=== PATIENT | male | born 1955 | race Caucasian/White ===

== ENCOUNTER → 2017-06-18 08:33 | Outpatient (CLI) | payer OTHER, SELFPAY ==
--- NOTE | 2017-06-18 08:42 | US_ITS ---
STUDY: RENAL ULTRASOUND - COMPLETE REASON FOR EXAM: Male, 61 years old. Renal cysts. TECHNIQUE: Ultrasound evaluation of the kidneys was performed with real-time and static todd-scale imaging. COMPARISON: CT of the abdomen and pelvis, June 16, 2016. MRI of the abdomen and pelvis, a 2016. Renal ultrasound, January 15, 2016. FINDINGS: RIGHT KIDNEY: Normal location of the right kidney, which is normal in size. The right kidney measures 12.4 cm. There is a normal cortex of the right kidney. The renal cortex measures 1.7 cm. There are 4 cysts. The largest off the lower pole measures 7.4 x 6.2 x 7.8 cm in size. This appears to contain small amount of internal debris. Moderate degree is decreased from the prior ultrasound. The remainder of the cysts appear simple in appearance and stable in size. There are no right renal calculi. There is no right hydronephrosis. DISTAL RIGHT URETER: There is non-visualization of the distal right ureter. There is no demonstrated right ureterovesical junction calculus. There is a visualized right ureteral jet. LEFT KIDNEY: Normal location of the left kidney, which is normal in size. The left kidney measures 11.5 cm. There is a normal cortex of the left kidney. The renal cortex measures 1.6 cm. There is a 1.8 x 1.1 x 1.0 cm cyst in the mid pole. There is a second midpole cyst measuring 1.4 x 1.4 x 1.7 cm. Both appear simple. There are no left renal calculi. There is no left hydronephrosis. DISTAL LEFT URETER: There is non-visualization of the distal left ureter. There is no demonstrated left ureterovesical junction calculus. There is a visualized left ureteral jet. BLADDER: The distended urinary bladder has a volume of 88 ml. There is a normal wall thickness of the distended urinary bladder. There is no demonstrated mass within the urinary bladder. There are no demonstrated bladder calculi. US/Kidney and Bladder IMPRESSION: 1. Multiple bilateral renal cysts. The largest cyst in the inferior right kidney contains internal debris. The degree of debris appears decreased from the prior ultrasound January 17, 2016. 2. Normal urinary bladder. Electronically Signed: Ramin Dejesus DO at 16:56 EDT Tel [phone], Service support ,
== END ==
PROVIDERS: Family Provider Family Medicine; PCP Family Medicine; Visit Provider Urology
DX: R97.20 Elevated prostate specific antigen [PSA] (principal)
CPT/HCPCS: 76770

== ENCOUNTER → 2017-07-31 10:38 | Outpatient (CLI) | payer OTHER, SELFPAY ==
[2017-07-31 11:14] LABS: Hematocrit 44.2 % (40-54); Hemoglobin 14.9 g/dl (13.0-16.5); Mean Corp Hgb Conc 33.7 g/gl (32-36); Mean Corpuscular Hgb 31.8 pg (27.0-32.0); Mean Corpuscular Volume 94.2 fL (80-94); Mean Platelet Vol. 10.4 fl (6.2-12.0); Platelet Count 208 K/mm3 (150-450); RBC Distribution Width CV 14.2 % (11.6-14.6); RBC Distribution Width SD 48.4 fl (35.1-43.9); Red Blood Count 4.69 M/mm3 (4.6-6.2); White Blood Count 8.1 K/mm3 (4.4-11.0)
[2017-07-31 11:15] LABS: Scan Indicated on CBC? Y/N NO
[2017-07-31 12:24] LABS: ALB/GLOB Ratio 0.9 RATIO (0.9-2.4); AST(SGOT) 17 U/L (15-37); Alanine Aminotransfer ALT/SGPT 32 U/L (16-61); Albumin, Serum 3.5 g/dL (3.2-5.0); Alkaline Phosphatase 79 U/L (45-117); Anion Gap 5 (5-15); BUN 25 mg/dL (7-18); BUN/Creat Ratio 22.9 RATIO (10-20); Calcium,Total 8.4 mg/dL (8.5-10.1); Chloride 105 mmol/L (98-107); Cholesterol 175 mg/dL (200); Creatinine, Serum 1.09 mg/dL (0.70-1.30); EST Glomerular Filtration Rate 73 mL/min (>60); Est Glom Filt Rate - Afr Amer 88 mL/min (>60); Glucose 132 mg/dL (74-106); High Density Lipoprotein 43 mg/dL; Potassium 4.4 mmol/L (3.5-5.1); Protein, Total 7.5 g/dL (6.4-8.2); Sodium Level 137 mmol/L (136-145); Triglycerides 84 mg/dL; Very Low Density Lipoprotein 17 mg/dL (5-40)
[2017-07-31 16:45] LABS: Thyroid Stim Hormone (TSH) 1.53 uIU/mL (0.358-3.74)
== END ==
PROVIDERS: Family Provider Family Medicine; PCP Family Medicine
DX: E78.5 Hyperlipidemia, unspecified (principal); I10 Essential (primary) hypertension; I48.91 Unspecified atrial fibrillation; R53.83 Other fatigue
CPT/HCPCS: 36415; 80053; 80061; 84443; 85027

== ENCOUNTER 2017-09-14 20:38 | Inpatient (IN) | payer OTHER, SELFPAY ==
[2017-09-14] VITALS (8 sets, daily range): BP systolic 98–123; BP diastolic 57–69; PULSE 32–54; RESP 16–20; TEMP 36.5–36.8; O2SAT 96–98; BMI 33.4; BMI 33.3
--- NOTE | 2017-09-14 20:40 | ED.RN ---
CALLED FOR EKG PER RN REQUEST, PULLED OLD EKG'S FOR
--- NOTE | 2017-09-14 20:57 | EKG12_ITS ---
Test Reason : LOW HR Blood Pressure : / mmHG Vent. Rate : 040 BPM Atrial Rate : 042 BPM P-R Int : 000 ms QRS Dur : 090 ms QT Int : 448 ms P-R-T Axes : 000 069 068 degrees QTc Int : 365 ms Atrial fibrillation with slow ventricular response Confirmed by VICKY AUGUST, PRIYANKA ([id number]), copy editor CLARE DUQUE ([id number]) on 09/16/2017 10:17:13 AM Referred By: PHILIPP Confirmed By:PRIYANKA PERRY MD
[2017-09-14] MEDS: Atropine Sulfate 1 MG/10 ML Syringe IV (21:02)
[2017-09-14] MEDS: Aspirin 81 MG TAB.CHEW 324 MG PO (21:04)
[2017-09-14] MEDS: Calcium Chloride 1 GM/10 ML Syringe IV (21:04)
--- NOTE | 2017-09-14 21:10 | RAD_ITS ---
STUDY: X-RAY CHEST REASON FOR EXAM: Male, 61 years old. Bradycardia TECHNIQUE: Single AP portable view of the chest. COMPARISON: 03/19/2015. FINDINGS: The lungs are clear and expanded. There is no demonstrated pleural abnormality. Normal size heart. Normal mediastinum and shannan. Normal visualized pulmonary arteries. Normal visualized aortic arch and descending thoracic aorta. Normal visualized thoracic spine. Normal visualized ribs, clavicles, and shoulders. There is no demonstrated abnormality of the visualized soft tissue structures of the upper abdomen. RAD/Chest 1 View (Portable) IMPRESSION: Normal x-ray examination of the chest. Electronically Signed: Juan Cornejo MD at 21:26 EDT , Service support ,
[2017-09-14 21:14] LABS: Absolute Lymphocyte Count 3.09 X10^3/ul (0.83-4.51); Basophil# 0.05 X10^3/uL; Basophil% 0.4 % (0-1); Differential Indicated SCAN CRITERIA MET; Eosinophil# 0.13 X10^3/uL; Hematocrit 45.9 % (40-54); Hemoglobin 15.5 g/dl (13.0-16.5); Lymphocyte # 3.09 X10^3/ul (4.0); Lymphocyte % 23.6 % (19-41); Mean Corp Hgb Conc 33.8 g/gl (32-36); Mean Corpuscular Hgb 32.2 pg (27.0-32.0); Mean Corpuscular Volume 95.2 fL (80-94); Mean Platelet Vol. 10.6 fl (6.2-12.0); Monocyte# 1.82 X10^3/uL; Monocyte% 13.9 % (0-10); Neutrophil # 7.95 X10^3/uL (2.7-7.7); Neutrophil % 60.8 % (47-70); POSITIVE COUNT NO; POSITIVE DIFFERENTIAL YES; POSITIVE MORPHOLOGY NO; Platelet Count 245 K/mm3 (150-450); RBC Distribution Width CV 13.5 % (11.6-14.6); Red Blood Count 4.82 M/mm3 (4.6-6.2); White Blood Count 13.1 K/mm3 (4.4-11.0)
[2017-09-14] MEDS: Ondansetron 4 MG/2 ML Vial IV (21:23)
[2017-09-14 21:26] LABS: Anion Gap 8 (5-15); BUN 40 mg/dL (7-18); BUN/Creat Ratio 13.1 RATIO (10-20); Calcium,Total 9.1 mg/dL (8.5-10.1); Chloride 102 mmol/L (98-107); Creatinine, Serum 3.05 mg/dL (0.70-1.30); EST Glomerular Filtration Rate 22 mL/min (>60); Est Glom Filt Rate - Afr Amer 27 mL/min (>60); Estimated Creatinine Clearance 22.66 ml/min; Glucose 174 mg/dL (74-106); Potassium 4.1 mmol/L (3.5-5.1); Sodium Level 137 mmol/L (136-145)
[2017-09-14 21:46] LABS: Differential Comment SCANNED
--- NOTE | 2017-09-14 22:28 | ED.VISSUMM ---
- ER Visit Summary Date of Service: 09/14/17 Chief Complaint: Weakness History of Present Illness: The patient is a 61 M who presents with weakness, he was bradycardic per EMS. He has a history of atrial fibrillation recently was started on Cardizem on top of his metoprolol. About 2 weeks ago he was started on the diuretic. No fever chills no chest pain or shortness of breath. Physical Examination: Patient is bradycardic, however somewhat irregular, heart no murmurs, lungs are clear abdomen soft and nontender no edema otherwise unremarkable exam Emergency Department Course and Treatment: Patient is found to have a creatinine of over 3 with a BUN of 40. I worry that this is intrinsic this may be secondary to the new diuretic, he also has dual blockade both beta-yazmin and calcium channel yazmin because of this I gave him atropine and calcium, his heart rate improved to the 50s but now it is in the 40s again but his blood pressure is normal. Regardless he will need admission and monitoring of his heart rate and blood pressure as well as nephrology consult. Admit currently stable but guarded condition Impression: Right cardia Acute renal insufficiency This note was generated with [employer] dictation software. It may contain incorrect words, spelling, and punctuation that were not noted in review of the chart prior to signing ED Disposition - Plan for ED Patient: Chief Complaint: Dizziness Referrals: Mahendra Sanchez MD [Primary Care Provider] -
--- NOTE | 2017-09-14 22:43 | HP.PCM_ITS ---
Problem List (1) Bradycardia Status: Acute (2) Acute renal failure Status: Acute (3) Atrial fibrillation Status: Chronic Qualifiers: Atrial fibrillation type: chronic Qualified Code(s): I48.2 - Chronic atrial fibrillation History of Present Illness Date of Admission: 09/14/17 Chief Complaint: dizzy and slow heart rate The patient is a 61 year old male patient who has a significant past medical history of atrial fibrillation. He is normally rate controlled with metoprolol , however, today he added an additional medication , Cardizem 240mg which he took at 12:00 noon. He states he was driving at about 2:30 when he began to feel lightheaded and dizzy. He completed his drive slowly and came home at about 3:00. He continued to be symptomatic and heart rate was in the 30s so he sought further medical care. He responded to a calcium and atropine and heart rate is now in the 50s and irregular. He does not feel dizzy while lying down. The patient is noted to have a creatinine of 3 and he was recently started on a higher dose of diuretic as well. He denies chest pain or shortness of breath. He will be admitted for further management of bradycardia and assessment of renal function. Past Medical History Past Medical History (Chronic Problems): Chronic Problems Atrial fibrillation (Chronic) Allergies No Known Allergies Allergy (Verified 09/14/17 20:44) Home Medications: Ambulatory Orders Medication Instructions Recorded Diltiazem CD [Cardizem CD] 240 mg PO DAILY 09/14/17 Losartan/Hydrochlorothiazide 2 tablet PO DAILY 09/14/17 [Losartan-Hctz 50-12.5 mg Tab] Metoprolol Succinate [Metoprolol 100 mg PO BID 09/14/17 Succinate] Rivaroxaban [Xarelto] 20 mg PO DAILY 09/14/17 Surgical History: no surgical history Smoking Status: Never smoker - *Family History Sibling History Items: Cancer, Diabetes VTE Information - Inpt Only VTE Present on Admission: No VTE Mechan Device Prophylaxis: SCD's VTE Pharm Prophylaxis ordered?: No Patient Problems: Active and Suspected Problems Bradycardia (Acute) Acute renal failure (Acute) - Physical Exam General: Alert, Oriented x3, Cooperative HEENT: Atraumatic, Normocephalic Neck: Supple, Negative Carotid Bruits Lungs: Clear to auscultation, Normal air movement, No rhonchi, No wheeze, No rales Cardiovascular: Normal S1, Normal S2, No murmurs, Bradycardic, Irregular Rate Abdomen: Bowel Sounds Present, Soft, Non Tender, Obese Extremities: No edema Skin: No rashes, No breakdown Musculoskeletal: No Tenderness to Palpation of Joints or Extremities Neurological: Neuro grossly intact Psych/Mental Status: Normal Affect, Appropriate Vital Signs Temp Pulse Resp BP Pulse Ox 97.7 F L 45 L 19 H 98/69 97 09/14/17 20:40 09/14/17 22:14 09/14/17 22:14 09/14/17 22:14 09/14/17 22:14 Oxygen Delivery Method Room Air Weight: 207 lb 0.225 oz Body Mass Index (BMI) 33.4 Laboratory Tests Past 24 Hrs 09/14/17 09/14/17 20:50 20:50 WBC 13.1 H RBC 4.82 Hgb 15.5 Hct 45.9 MCV 95.2 H MCH 32.2 H MCHC 33.8 RDW 13.5 RDW Differential 47.0 H Plt Count 245 MPV 10.6 Immature Gran % (Auto) 0.300 Neut % (Auto) 60.8 Lymph % (Auto) 23.6 [place] % (Auto) 13.9 H Eos % (Auto) 1.0 Baso % (Auto) 0.4 Absolute Neuts (auto) 8.0 H Absolute Lymphs (auto) 3.09 Total Counted Not Reportable Differential Comment SCANNED Sodium 137 Potassium 4.1 Chloride 102 Carbon Dioxide 27.0 Anion Gap 8 BUN 40 H Creatinine 3.05 H Estim Creat Clear Calc 22.66 Est GFR (MDRD) Af Amer 27 L Est GFR (MDRD) Non-Af 22 L BUN/Creatinine Ratio 13.1 Glucose 174 H Calcium 9.1 Troponin I < 0.015 Assessment/Plan All Active Problems Bradycardia (Acute) Acute renal failure (Acute) Chronic Problems Atrial fibrillation (Chronic) Plan - admit to progressive care unit - repeat cbc, bmp in am - hold beta yazmin and calcium channel yazmin - cycle cardiac enzymes - gentle hydration with normal saline at 75cc/hr - renal diet - scd for dvt prophylaxis - hold home medications tonight Code Visit Inpatient E&M: 04207 Init Hosp L3
--- NOTE | 2017-09-14 22:57 | NURSING ---
Called [facility] charge nursebrant to send patient to the floor.
[2017-09-14] MEDS: 0.9% Normal Saline 1,000 ML 75 ML IV (23:49)
[2017-09-15] VITALS (16 sets, daily range): BP systolic 87–130; BP diastolic 49–81; PULSE 31–78; RESP 14–16; TEMP 36.3–36.8; O2SAT 97–99
[2017-09-15] MEDS: 0.9% NaCl Peripheral Flush Adult/Peds IV ×2 (01:51→02:37)
[2017-09-15] MEDS: Atropine Sulfate 1 MG/10 ML Syringe 0.5 MG IV (01:51)
[2017-09-15] MEDS: Calcium Chloride 1 GM/10 ML Syringe IV (02:38)
[2017-09-15 03:08] LABS: Hematocrit 41.9 % (40-54); Hemoglobin 14.5 g/dl (13.0-16.5); Mean Corp Hgb Conc 34.6 g/gl (32-36); Mean Corpuscular Hgb 32.7 pg (27.0-32.0); Mean Corpuscular Volume 94.4 fL (80-94); Mean Platelet Vol. 10.6 fl (6.2-12.0); Platelet Count 228 K/mm3 (150-450); RBC Distribution Width CV 13.5 % (11.6-14.6); RBC Distribution Width SD 45.2 fl (35.1-43.9); Red Blood Count 4.44 M/mm3 (4.6-6.2); White Blood Count 10.7 K/mm3 (4.4-11.0)
[2017-09-15 03:10] LABS: Scan Indicated on CBC? Y/N NO
[2017-09-15 03:38] LABS: BNP,B-Type NATRIURETIC PEPTIDE 59.7 pg/mL (0-100)
[2017-09-15 04:43] LABS: Anion Gap 12 (5-15); BUN 43 mg/dL (7-18); BUN/Creat Ratio 19.3 RATIO (10-20); Calcium,Total 11.1 mg/dL (8.5-10.1); Chloride 105 mmol/L (98-107); Cholesterol 162 mg/dL (200); Creatinine, Serum 2.23 mg/dL (0.70-1.30); EST Glomerular Filtration Rate 32 mL/min (>60); Est Glom Filt Rate - Afr Amer 39 mL/min (>60); Estimated Creatinine Clearance 30.99 ml/min; Glucose 141 mg/dL (74-106); High Density Lipoprotein 35 mg/dL; Potassium 5.8 mmol/L (3.5-5.1); Sodium Level 139 mmol/L (136-145); Triglycerides 124 mg/dL; Very Low Density Lipoprotein 25 mg/dL (5-40)
[2017-09-15 05:02] LABS: Osmolality, Serum 294 mOsm/KG (280-301)
[2017-09-15 07:24] LABS: Magnesium 2.2 mg/dL (1.6-2.6)
--- NOTE | 2017-09-15 12:56 | RDU_ITS ---
Reason For Study: HYPERTENSION Right Renal Artery Left Renal Artery Right renal artery ostium 84.3/22.6 Left renal artery ostium 78.0/14.0 RSV/EDV. PSV/EDV. Right renal artery proximal Left renal artery proximal PSV/EDV 72.7/15.3 PSV/EDV. 65.6/18.3 . Right renal artery mid 76.4/14.1 Left renal artery mid 73.1/18.3 PSV/EDV. PSV/EDV . Right renal artery distal 63.6/11.6 Left renal artery distal 75.8/19.4 PSV/EDV. PSV/EDV. Right RAR 1.0. Left RAR .96. Right Renal Parenchyma Left Renal Parenchyma Upper Pole Medula 18.6/6.7 PSV/EDV. Left upper pole medulla 25.7/7.3 Right upper pole medulla EDR .36 . PSV/EDV . Right upper pole medulla R.I. .64 . Left upper pole medulla EDR .28 . Upper Sergey Cortx 13.5/5.0 PSV/EDV. Left upper pole medulla R.I. .71 . Right upper pole cortex EDR .37 . UP Cortex 16.7/3.7 PSV/EDV. Right upper pole cortex R.I. .63 . Left upper pole cortex EDR .22 . Right lower Pole medulla 17.6/5.4 Left upper pole cortex R.I. .78 . PSV/EDV . Left lower Pole medulla 18.5/7.6 Right lower pole medulla EDR .31 . PSV/EDV . Right lower pole medulla R.I. .69 . Left lower pole medulla EDR .41 . Lower Pole Cortex 13.9/4.4 PSV/EDV. Left lower pole medulla R.I. .59 . Right lower pole cortex EDR .32 . Lower Pole Cortx 17.2/5.2 PSV/EDV. Right lower pole cortex R.I. .68 . Left lower pole cortex EDR .30 . Right Renal Hilar Left lower pole cortex R.I. .70 . Right Hilar avg 23.7/5.6 PSV/EDV. Left Renal Hilar Right hilar acceleration time 37 LT Hilar avg 42.8/8.3 PSV/EDV . m/sec. Left hilar acceleration time 37 Right Renal Dimensions m/sec. Right kidney size 11.8 cm . Left Renal Dimensions Right cortical dimension 1.5 cm . Left kidney size 11.6 cm . Hypoechoic structure noted Left cortical dimension 1.5 cm . measuring 6.3 x 6.2 cm. Aorta Proximal abdominal aorta 1.8 X 1.8 cm . Proximal abdominal aorta peak systolic velocity is 81.2 cm/sec . Dist aorta not visualized due to bowel gas and body habitus. Interpretation Summary Dimensions of the intra-abdominal aorta appear normal, without evidence of aneurysmal dilatation. Renal artery velocities are bilaterally normal. Acceleration times are normal bilaterally. Renal- aortic ratios are also bilaterally normal. There is no evidence of hemodynamically significant renal artery stenosis on either side. Renovascular resistance appears normal in the right kidney, but increased in the left kidney. Cortical dimensions are bilaterally normal. Kidneys appear normal in size bilaterally. A non-vascular, hypoechoic structure is noted in the right kidney, measuring 6.3 cm x 6.2 cm. This may represent a renal cyst. Clinical correlation is advised. Ordering Physician: Santino Jordan Referring Physician: Stefan Brock Performed By: Kibmerly Pardo RVT
[2017-09-15] MEDS: 0.9% Normal Saline 1,000 ML 100 ML IV ×2 (13:17→22:30)
[2017-09-15] MEDS: Rivaroxaban 20 MG Tablet PO (13:17)
--- NOTE | 2017-09-15 14:12 | CASEMGMT ---
Face to Face with patient for initial transition planning/care coordination assessment. NOEMI ADAMS introduced self and role at [facility], pt voices understanding and consents to assessment at this time. Pt is sitting up in bed in no distress at this time. Pt is A/Ox4 at this time and answers all questions appropriately at this time. Care providers, pharmacy, and demographics verified. See attached link. Pt voices no further concerns/needs at this time. Advised pt to ask for CM if any further questions/concerns/needs arise, voices understanding. PLAN: [place] NOEMI AD[facility]
--- NOTE | 2017-09-15 19:54 | PCM.PROGNOTE ---
Patient Problems: Active and Suspected Problems Bradycardia (Acute) Acute renal failure (Acute) Subjective: Patient was seen and examined today, I talked with him and his extensively and talked with his boilermaker helper who is a practice in [place]. Recently the patient's beta-yazmin was increased due to complaints of tachycardia-patient is in chronic atrial fib and has been in atrial fibrillation some time, he underwent a cardioversion and ablation in the past but was unable to stay in normal sinus rhythm. He states it was decided that he would remain in atrial fib because his rate was controlled most of the time and he is on chronic Xarelto. Yesterday patient was seen in the emergency room with chief complaint of weakness, he was noted to be bradycardic and his creatinine was over 3 with a BUN of 40. Patient's BUN and creatinine are improved today, he recently had a calcium channel yazmin added to his regimen. After talking with his boilermaker helper by phone today, his boilermaker helper recommended that when the patient's blood pressure was able to tolerate resumption of rate control agents that he be placed on immediate release to Cardizem at 30 mg 4 times daily and that the beta-yazmin not be restarted. Today the patient's blood pressure has improved, his pulse rate remains in the 80s so I have elected not to start his Cardizem yet. Patient's IV rate will be increased, I think his creatinine was elevated due to his use of outpatient hydrochlorothiazide. - Physical Exam General: Alert, Oriented x3, Cooperative, No apparent distress, Well developed HEENT: Atraumatic, PERRLA, EOMI, Normocephalic Oral: Moist Mucosa Neck: Supple, No JVD, No Nuchal Rigidity, Trachea Midline, Thyroid Normal Size and Texture Lungs: Clear to auscultation, Normal air movement Cardiovascular: PMI Normal, Irregular Rate, No rub noted Abdomen: Bowel Sounds Present, Soft, Non Tender, Non-Distended, No hernias noted Extremities: No clubbing, No cyanosis, No edema, Capillary Refill Less than 3 Seconds Skin: No rashes, No breakdown Musculoskeletal: No Tenderness to Palpation of Joints or Extremities Neurological: Cranial nerves II-XII grossly intact, Neuro grossly intact, Muscle tone normal, Sensory exam intact to light touch and pain Psych/Mental Status: Normal Affect, Appropriate, Alert and oriented to time, place, person, mood and affect Vital Signs Temp Pulse Resp BP Pulse Ox 98.1 F 63 14 123/81 H 97 09/15/17 14:45 09/15/17 19:01 09/15/17 14:45 09/15/17 14:45 09/15/17 14:45 Oxygen Delivery Method Room Air Weight: 93.6 kg Body Mass Index (BMI) 33.3 Intake and Output for Last 24 Hours 09/13/17 09/14/17 09/15/17 23:59 23:59 23:59 Intake Total 2902 / 2902 Output Total 500 / 500 Balance 2402 / 2402 Laboratory Tests Past 24 Hrs 09/15/17 09/15/17 09/15/17 00:20 02:50 02:50 WBC 10.7 RBC 4.44 L Hgb 14.5 Hct 41.9 MCV 94.4 H MCH 32.7 H MCHC 34.6 RDW 13.5 RDW Differential 45.2 H Plt Count 228 MPV 10.6 Sodium 139 Potassium 5.8 H Chloride 105 Carbon Dioxide 22.0 Anion Gap 12 BUN 43 H Creatinine 2.23 H Estim Creat Clear Calc 30.99 Est GFR (MDRD) Af Amer 39 L Est GFR (MDRD) Non-Af 32 L BUN/Creatinine Ratio 19.3 Glucose 141 H Serum Osmolality Calcium 11.1 H Magnesium Troponin I < 0.015 B-Natriuretic Peptide Triglycerides 124 Cholesterol 162 LDL Cholesterol 102 VLDL Cholesterol 25 HDL Cholesterol 35 L 09/15/17 09/15/17 09/15/17 02:50 02:50 02:50 WBC RBC Hgb Hct MCV MCH MCHC RDW RDW Differential Plt Count MPV Sodium Potassium Chloride Carbon Dioxide Anion Gap BUN Creatinine Estim Creat Clear Calc Est GFR (MDRD) Af Amer Est GFR (MDRD) Non-Af BUN/Creatinine Ratio Glucose Serum Osmolality 294 Calcium Magnesium Troponin I < 0.015 B-Natriuretic Peptide 59.7 Triglycerides Cholesterol LDL Cholesterol VLDL Cholesterol HDL Cholesterol 09/15/17 02:50 WBC RBC Hgb Hct MCV MCH MCHC RDW RDW Differential Plt Count MPV Sodium Potassium Chloride Carbon Dioxide Anion Gap BUN Creatinine Estim Creat Clear Calc Est GFR (MDRD) Af Amer Est GFR (MDRD) Non-Af BUN/Creatinine Ratio Glucose Serum Osmolality Calcium Magnesium 2.2 Troponin I B-Natriuretic Peptide Triglycerides Cholesterol LDL Cholesterol VLDL Cholesterol HDL Cholesterol Medical Necessity - Tobacco Use Smoking Status: Never smoker Assessment/Plan All Active Problems Bradycardia (Acute) Acute renal failure (Acute) #1 symptomatic bradycardia on an overlay of chronic atrial fibrillation-patient's rate limiting medications will be held at this time, patient will be monitored #2 uncontrolled hypertension-patient will get a renal artery duplex scan to rule out stenosis #3 acute kidney injury-improved with fluids, probably secondary to diuretic usage, patient will have a renal artery duplex scan performed #4 Chronic anticoagulation with Xarelto Code Visit Inpatient E&M: 06519 Subs Hosp L2
--- NOTE | 2017-09-15 19:57 | PN_ITS ---
Patient Problems: Active and Suspected Problems Bradycardia (Acute) Acute renal failure (Acute) Subjective: Patient was seen and examined today, I talked with him and his extensively and talked with his service dog trainer who is a practice in [place]. Recently the patient's beta-yazmin was increased due to complaints of tachycardia-patient is in chronic atrial fib and has been in atrial fibrillation some time, he underwent a cardioversion and ablation in the past but was unable to stay in normal sinus rhythm. He states it was decided that he would remain in atrial fib because his rate was controlled most of the time and he is on chronic Xarelto. Yesterday patient was seen in the emergency room with chief complaint of weakness, he was noted to be bradycardic and his creatinine was over 3 with a BUN of 40. Patient's BUN and creatinine are improved today, he recently had a calcium channel yazmin added to his regimen. After talking with his service dog trainer by phone today, his service dog trainer recommended that when the patient's blood pressure was able to tolerate resumption of rate control agents that he be placed on immediate release to Cardizem at 30 mg 4 times daily and that the beta -yazmin not be restarted. Today the patient's blood pressure has improved, his pulse rate remains in the 80s so I have elected not to start his Cardizem yet. Patient's IV rate will be increased, I think his creatinine was elevated due to his use of outpatient hydrochlorothiazide. - Physical Exam General: Alert, Oriented x3, Cooperative, No apparent distress, Well developed HEENT: Atraumatic, PERRLA, EOMI, Normocephalic Oral: Moist Mucosa Neck: Supple, No JVD, No Nuchal Rigidity, Trachea Midline, Thyroid Normal Size and Texture Lungs: Clear to auscultation, Normal air movement Cardiovascular: PMI Normal, Irregular Rate, No rub noted Abdomen: Bowel Sounds Present, Soft, Non Tender, Non-Distended, No hernias noted Extremities: No clubbing, No cyanosis, No edema, Capillary Refill Less than 3 Seconds Skin: No rashes, No breakdown Musculoskeletal: No Tenderness to Palpation of Joints or Extremities Neurological: Cranial nerves II-XII grossly intact, Neuro grossly intact, Muscle tone normal, Sensory exam intact to light touch and pain Psych/Mental Status: Normal Affect, Appropriate, Alert and oriented to time, place, person, mood and affect Vital Signs Temp Pulse Resp BP Pulse Ox 98.1 F 63 14 123/81 H 97 09/15/17 14:45 09/15/17 19:01 09/15/17 14:45 09/15/17 14:45 09/15/17 14:45 Oxygen Delivery Method Room Air Weight: 93.6 kg Body Mass Index (BMI) 33.3 Intake and Output for Last 24 Hours 09/13/17 09/14/17 09/15/17 23:59 23:59 23:59 Intake Total 2902 / 2902 Output Total 500 / 500 Balance 2402 / 2402 Laboratory Tests Past 24 Hrs 09/15/17 09/15/17 09/15/17 00:20 02:50 02:50 WBC 10.7 RBC 4.44 L Hgb 14.5 Hct 41.9 MCV 94.4 H MCH 32.7 H MCHC 34.6 RDW 13.5 RDW Differential 45.2 H Plt Count 228 MPV 10.6 Sodium 139 Potassium 5.8 H Chloride 105 Carbon Dioxide 22.0 Anion Gap 12 BUN 43 H Creatinine 2.23 H Estim Creat Clear Calc 30.99 Est GFR (MDRD) Af Amer 39 L Est GFR (MDRD) Non-Af 32 L BUN/Creatinine Ratio 19.3 Glucose 141 H Serum Osmolality Calcium 11.1 H Magnesium Troponin I < 0.015 B-Natriuretic Peptide Triglycerides 124 Cholesterol 162 LDL Cholesterol 102 VLDL Cholesterol 25 HDL Cholesterol 35 L 09/15/17 09/15/17 09/15/17 02:50 02:50 02:50 WBC RBC Hgb Hct MCV MCH MCHC RDW RDW Differential Plt Count MPV Sodium Potassium Chloride Carbon Dioxide Anion Gap BUN Creatinine Estim Creat Clear Calc Est GFR (MDRD) Af Amer Est GFR (MDRD) Non-Af BUN/Creatinine Ratio Glucose Serum Osmolality 294 Calcium Magnesium Troponin I < 0.015 B-Natriuretic Peptide 59.7 Triglycerides Cholesterol LDL Cholesterol VLDL Cholesterol HDL Cholesterol 09/15/17 02:50 WBC RBC Hgb Hct MCV MCH MCHC RDW RDW Differential Plt Count MPV Sodium Potassium Chloride Carbon Dioxide Anion Gap BUN Creatinine Estim Creat Clear Calc Est GFR (MDRD) Af Amer Est GFR (MDRD) Non-Af BUN/Creatinine Ratio Glucose Serum Osmolality Calcium Magnesium 2.2 Troponin I B-Natriuretic Peptide Triglycerides Cholesterol LDL Cholesterol VLDL Cholesterol HDL Cholesterol Medical Necessity - Tobacco Use Smoking Status: Never smoker Assessment/Plan All Active Problems Bradycardia (Acute) Acute renal failure (Acute) #1 symptomatic bradycardia on an overlay of chronic atrial fibrillation-patient' s rate limiting medications will be held at this time, patient will be monitored #2 uncontrolled hypertension-patient will get a renal artery duplex scan to rule out stenosis #3 acute kidney injury-improved with fluids, probably secondary to diuretic usage, patient will have a renal artery duplex scan performed #4 Chronic anticoagulation with Xarelto Code Visit Inpatient E&M: 55754 Subs Hosp L2
[2017-09-16] VITALS (15 sets, daily range): BP systolic 110–150; BP diastolic 30–89; PULSE 31–102; RESP 16–18; TEMP 36.6–37.1; O2SAT 96–100
[2017-09-16 02:43] LABS: Urine Sodium 120 mmol/L (Not Establ.)
[2017-09-16 03:18] LABS: Osmolality, Urine 653 mOsm/KG
[2017-09-16] MEDS: Rivaroxaban 20 MG Tablet PO (06:11)
[2017-09-16] MEDS: 0.9% Normal Saline 1,000 ML 100 ML IV (06:12)
[2017-09-16] MEDS: dilTIAZem 30 MG Tablet PO (11:51)
[2017-09-16 12:22] LABS: Anion Gap 7 (5-15); BUN 28 mg/dL (7-18); BUN/Creat Ratio 25.5 RATIO (10-20); Calcium,Total 9.2 mg/dL (8.5-10.1); Chloride 108 mmol/L (98-107); EST Glomerular Filtration Rate 72 mL/min (>60); Est Glom Filt Rate - Afr Amer 87 mL/min (>60); Estimated Creatinine Clearance 62.83 ml/min; Glucose 98 mg/dL (74-106); Sodium Level 141 mmol/L (136-145)
--- NOTE | 2017-09-16 18:11 | PCM.PROGNOTE ---
Patient Problems: Active and Suspected Problems Bradycardia (Acute) Acute renal failure (Acute) Subjective: Patient was seen and examined today, his heart rate went up around noontime today and he was placed on immediate release Cardizem for rate control, later on in the early afternoon, patient had a 2.5-2.8 second pause, at that time I stopped his oral Cardizem, I contacted his human geography instructor who recommended institution of low-dose beta-yazmin starting this evening and observing the patient further. Patient's blood pressure has been under control. - Physical Exam General: Alert, Oriented x3, Cooperative, No apparent distress, Well developed HEENT: Atraumatic, PERRLA, EOMI, Normocephalic Oral: Moist Mucosa Neck: Supple, No JVD, No Nuchal Rigidity, Trachea Midline, Thyroid Normal Size and Texture Lungs: Clear to auscultation, Normal air movement, No rhonchi, No wheeze, No rales Cardiovascular: No murmurs, PMI Normal, Irregular Rate, No rub noted Abdomen: Bowel Sounds Present, Soft, Non Tender, Non-Distended, No hernias noted Extremities: No clubbing, No cyanosis, No edema, Capillary Refill Less than 3 Seconds Skin: No rashes, No breakdown Musculoskeletal: No Tenderness to Palpation of Joints or Extremities Neurological: Cranial nerves II-XII grossly intact, Neuro grossly intact, Sensory exam intact to light touch and pain, Coordination normal Psych/Mental Status: Normal Affect, Appropriate, Alert and oriented to time, place, person, mood and affect Vital Signs Temp Pulse Resp BP Pulse Ox 98.5 F 56 L 16 116/76 99 09/16/17 15:07 09/16/17 15:08 09/16/17 15:07 09/16/17 15:07 09/16/17 15:07 Oxygen Delivery Method Room Air Weight: 93.6 kg Body Mass Index (BMI) 33.3 Intake and Output for Last 24 Hours 09/14/17 09/15/17 09/16/17 23:59 23:59 23:59 Intake Total 3744 / 3744 2116 Output Total 500 / 500 Balance 3244 / 3244 2116 Laboratory Tests Past 24 Hrs 09/16/17 09/16/17 09/16/17 02:30 02:30 11:42 Sodium 141 Potassium 4.0 Chloride 108 H Carbon Dioxide 26.0 Anion Gap 7 BUN 28 H Creatinine 1.10 Estim Creat Clear Calc 62.83 Est GFR (MDRD) Af Amer 87 Est GFR (MDRD) Non-Af 72 BUN/Creatinine Ratio 25.5 H Glucose 98 Calcium 9.2 Urine Osmolality 653 Ur Random Sodium 120 Medical Necessity - Tobacco Use Smoking Status: Never smoker Assessment/Plan All Active Problems Bradycardia (Acute) Acute renal failure (Acute) #1 symptomatic bradycardia on an overlay of chronic atrial fibrillation-he will be placed on low-dose metoprolol and observe further for any episodes of bradycardia or sinus pauses #2 uncontrolled hypertension-renal artery duplex scan was ordered and the results are pending at this time #3 acute kidney injury-resolved, patient's creatinine was repeated today and it was 1.1, fluids were stopped #4 Chronic anticoagulation with Xarelto Code Visit Inpatient E&M: 14586 Subs Hosp L2
[2017-09-16] MEDS: Metoprolol Tartrate 25 MG Tablet 12.5 MG PO (21:40)
[2017-09-17 03:00] VITALS: PULSE 64
[2017-09-17 05:21] VITALS: BP 116/87; PULSE 71; RESP 16; TEMP 36.6; O2SAT 99
[2017-09-17] MEDS: Rivaroxaban 20 MG Tablet PO (05:24)
[2017-09-17 06:55] VITALS: PULSE 77
--- NOTE | 2017-09-17 09:28 | PCM.DC ---
- Discharge Diagnoses Current Active Problems: Current Active and Chronic Problems Bradycardia (Acute) Acute renal failure (Acute) You will use the following diet at home:: No restrictions Your food should be the consistency of: Regular Your liquids should be the consistency of: Regular/Thin Discharge Activity: Return to Normal Activity Weight Bearing Status: Full weight bearing Allergies/Adverse Reactions: Allergies No Known Allergies Allergy (Verified 09/14/17 20:44) Medications to take at Discharge Rivaroxaban [Xarelto] 20 mg PO DAILY 09/14/17 Metoprolol Tartrate [Lopressor (beta yazmin)] 12.5 mg PO BID #60 tab 09/17/17 Rivaroxaban [Xarelto] 20 mg PO DAILY@0600 tablet 09/17/17 The following prescriptions were given: Metoprolol Tartrate [Lopressor (beta yazmin)] 12.5 mg PO BID #60 tab Primary Care Physician: Mahendra Sanchez MD [Primary Care Provider] - Please follow up with your Primary Care Physician in: as scheduled Test Results: Test results from this visit will be discussed in further detail at your follow-up appointment, if applicable. Please Follow Up With: Stefan Brock When: as directed
--- NOTE | 2017-09-17 09:35 | DCINST_ITS ---
- Discharge Diagnoses Current Active Problems: Current Active and Chronic Problems Bradycardia (Acute) Acute renal failure (Acute) You will use the following diet at home:: No restrictions Your food should be the consistency of: Regular Your liquids should be the consistency of: Regular/Thin Discharge Activity: Return to Normal Activity Weight Bearing Status: Full weight bearing Allergies/Adverse Reactions: Allergies No Known Allergies Allergy (Verified 09/14/17 20:44) Medications to take at Discharge Rivaroxaban [Xarelto] 20 mg PO DAILY 09/14/17 Metoprolol Tartrate [Lopressor (beta yazmin)] 12.5 mg PO BID #60 tab 09/17/17 Rivaroxaban [Xarelto] 20 mg PO DAILY@0600 tablet 09/17/17 The following prescriptions were given: Metoprolol Tartrate [Lopressor (beta yazmni)] 12.5 mg PO BID #60 tab Primary Care Physician: Mahendra Sanchez MD [Primary Care Provider] - Please follow up with your Primary Care Physician in: as scheduled Test Results: Test results from this visit will be discussed in further detail at your follow- up appointment, if applicable. Please Follow Up With: Stefan Borck When: as directed
[2017-09-17 10:00] VITALS: BP 147/85; PULSE 69; RESP 16; TEMP 36.8; O2SAT 95
[2017-09-17 10:01] VITALS: PULSE 69
[2017-09-17] MEDS: Metoprolol Tartrate 25 MG Tablet 12.5 MG PO (10:01)
--- NOTE | 2017-09-18 09:44 | PCM.DC.SUM ---
Discharge Date and Diagnosis Date of Admission: 09/14/17 Date of Discharge: 09/17/17 - Primary Discharge Diagnosis #1 symptomatic bradycardia on an overlay of chronic atrial fibrillation-secondary to enhance response of rate limiting agents diltiazem and metoprolol #2 uncontrolled hypertension- #3 acute kidney injury- probably secondary to diuretic usage #4 Chronic anticoagulation with Xarelto #5 chronic atrial fibrillation - Secondary Discharge Diagnosis Chronic Problems Atrial fibrillation (Chronic) Hospital Course and Treatment Operations: None Procedures: - - Renal artery duplex scan Summary of Care Provided: The patient is a 61 year old M [] Discharge Activity: Return to Normal Activity Weight Bearing Status: Full weight bearing Home Medications: Medications to take at Discharge Rivaroxaban [Xarelto] 20 mg PO DAILY 09/14/17 Metoprolol Tartrate [Lopressor (beta yazmin)] 12.5 mg PO BID #60 tab 09/17/17 Rivaroxaban [Xarelto] 20 mg PO DAILY@0600 tablet 09/17/17 Following Prescrptions Were Given to Patient: Metoprolol Tartrate [Lopressor (beta yazmin)] 12.5 mg PO BID #60 tab Primary Care Physician: Bri Sanchez MD [Primary Care Provider] - Please follow up with your Primary Care Physician in: as scheduled Please Follow Up With: Stefan Brock When: as directed Please Follow Up With: bri sanchez Medical Necessity - Tobacco Use Smoking Status: Never smoker
--- NOTE | 2017-09-18 10:15 | DS.PCM_ITS ---
Discharge Date and Diagnosis Date of Admission: 09/14/17 Date of Discharge: 09/17/17 - Primary Discharge Diagnosis #1 symptomatic bradycardia on an overlay of chronic atrial fibrillation- secondary to enhance response of rate limiting agents diltiazem and metoprolol #2 uncontrolled hypertension- #3 acute kidney injury- probably secondary to diuretic usage #4 Chronic anticoagulation with Xarelto #5 chronic atrial fibrillation - Secondary Discharge Diagnosis Chronic Problems Atrial fibrillation (Chronic) Hospital Course and Treatment Operations: None Procedures: - - Renal artery duplex scan Summary of Care Provided: The patient is a 61 year old M [] Discharge Activity: Return to Normal Activity Weight Bearing Status: Full weight bearing Home Medications: Medications to take at Discharge Rivaroxaban [Xarelto] 20 mg PO DAILY 09/14/17 Metoprolol Tartrate [Lopressor (beta yazmin)] 12.5 mg PO BID #60 tab 09/17/17 Rivaroxaban [Xarelto] 20 mg PO DAILY@0600 tablet 09/17/17 Following Prescrptions Were Given to Patient: Metoprolol Tartrate [Lopressor (beta yazmin)] 12.5 mg PO BID #60 tab Primary Care Physician: Bri Sanchez MD [Primary Care Provider] - Please follow up with your Primary Care Physician in: as scheduled Please Follow Up With: Stefan Brock When: as directed Please Follow Up With: bri sanchez Medical Necessity - Tobacco Use Smoking Status: Never smoker
--- NOTE | 2017-09-18 10:19 | PCM.DC.SUM ---
Discharge Date and Diagnosis Date of Admission: 09/14/17 Date of Discharge: 09/17/17 - Primary Discharge Diagnosis 1 symptomatic bradycardia on an overlay of chronic atrial fibrillation-secondary to enhance response of rate limiting agents diltiazem and metoprolol #2 uncontrolled hypertension- #3 acute kidney injury- probably secondary to diuretic usage #4 Chronic anticoagulation with Xarelto #5 chronic atrial fibrillation - Secondary Discharge Diagnosis Chronic Problems Atrial fibrillation (Chronic) Hospital Course and Treatment Operations: None Procedures: - - Renal artery duplex scan Summary of Care Provided: The patient is a 61 year old M who was seen in the emergency room at [facility] with chief complaint of weakness and low heart rate. Patient was bradycardic per EMS, patient has a history of chronic atrial fibrillation and is underwent rate control with medications. Recently the patient's medications have been adjusted by his boardmarker. Patient's heart rate on arrival to the emergency room was 37, EKG showed atrial fibrillation with a slow ventricular response, labs showed an elevated creatinine and BUN, patient was given atropine and calcium by the emergency room physician and his heart rate increased to the 50s. Blood pressure remained normal. Patient was admitted to PCU, his medications were held, I contacted his boardmarker who recommended restarting his diltiazem with an immediate release diltiazem rather than an extended release diltiazem. When patient was placed on immediate release diltiazem, he had another episode of bradycardia with a 2.5 second pause. His boardmarker was contacted again and recommended discontinuing the diltiazem and starting metoprolol at 12.5 mg twice daily instead. Patient underwent a renal artery duplex scan to rule out renal artery stenosis due to his history of uncontrolled blood pressure as an outpatient, the scan did not show any evidence of renal artery stenosis. Patient was not restarted on his blood pressure medications, he was given IV fluids and his creatinine normalized. It was felt that the creatinine elevation was due to acute kidney injury in part from his diuretics. On 09/17/17, patient was seen and examined felt to be in stable condition for discharge home, he was instructed to go to the cardiopulmonary department for application of a 2 week Holter-this was requested by his boardmarker. Patient is to follow-up with his boardmarker next week. Discharge Activity: Return to Normal Activity Weight Bearing Status: Full weight bearing Home Medications: Medications to take at Discharge Rivaroxaban [Xarelto] 20 mg PO DAILY 09/14/17 Metoprolol Tartrate [Lopressor (beta yazmin)] 12.5 mg PO BID #60 tab 09/17/17 Rivaroxaban [Xarelto] 20 mg PO DAILY@0600 tablet 09/17/17 Following Prescrptions Were Given to Patient: Metoprolol Tartrate [Lopressor (beta yazmin)] 12.5 mg PO BID #60 tab Primary Care Physician: Bri Sanchez MD [Primary Care Provider] - Please follow up with your Primary Care Physician in: as scheduled Please Follow Up With: Stefan Brock When: as directed Please Follow Up With: bri sanchez Disposition: Home Minutes spent on discharge:: 32 Patient Condition:: Stable Medical Necessity - Tobacco Use Smoking Status: Never smoker Meaningful Use Info Meaningful Use Diagnoses (Choose all that apply): None applicable Code Visit Inpatient E&M: 26721 Disch Hosp
--- NOTE | 2017-09-18 10:23 | DS.PCM_ITS ---
Discharge Date and Diagnosis Date of Admission: 09/14/17 Date of Discharge: 09/17/17 - Primary Discharge Diagnosis 1 symptomatic bradycardia on an overlay of chronic atrial fibrillation- secondary to enhance response of rate limiting agents diltiazem and metoprolol #2 uncontrolled hypertension- #3 acute kidney injury- probably secondary to diuretic usage #4 Chronic anticoagulation with Xarelto #5 chronic atrial fibrillation - Secondary Discharge Diagnosis Chronic Problems Atrial fibrillation (Chronic) Hospital Course and Treatment Operations: None Procedures: - - Renal artery duplex scan Summary of Care Provided: The patient is a 61 year old M who was seen in the emergency room at [facility] with chief complaint of weakness and low heart rate. Patient was bradycardic per EMS, patient has a history of chronic atrial fibrillation and is underwent rate control with medications. Recently the patient's medications have been adjusted by his window clerk. Patient's heart rate on arrival to the emergency room was 37, EKG showed atrial fibrillation with a slow ventricular response, labs showed an elevated creatinine and BUN, patient was given atropine and calcium by the emergency room physician and his heart rate increased to the 50s. Blood pressure remained normal. Patient was admitted to PCU, his medications were held, I contacted his window clerk who recommended restarting his diltiazem with an immediate release diltiazem rather than an extended release diltiazem. When patient was placed on immediate release diltiazem, he had another episode of bradycardia with a 2.5 second pause. His window clerk was contacted again and recommended discontinuing the diltiazem and starting metoprolol at 12.5 mg twice daily instead. Patient underwent a renal artery duplex scan to rule out renal artery stenosis due to his history of uncontrolled blood pressure as an outpatient, the scan did not show any evidence of renal artery stenosis. Patient was not restarted on his blood pressure medications, he was given IV fluids and his creatinine normalized. It was felt that the creatinine elevation was due to acute kidney injury in part from his diuretics. On 09/17/17, patient was seen and examined felt to be in stable condition for discharge home, he was instructed to go to the cardiopulmonary department for application of a 2 week Holter-this was requested by his window clerk. Patient is to follow-up with his window clerk next week. Discharge Activity: Return to Normal Activity Weight Bearing Status: Full weight bearing Home Medications: Medications to take at Discharge Rivaroxaban [Xarelto] 20 mg PO DAILY 09/14/17 Metoprolol Tartrate [Lopressor (beta yazmin)] 12.5 mg PO BID #60 tab 09/17/17 Rivaroxaban [Xarelto] 20 mg PO DAILY@0600 tablet 09/17/17 Following Prescrptions Were Given to Patient: Metoprolol Tartrate [Lopressor (beta yazmin)] 12.5 mg PO BID #60 tab Primary Care Physician: Bri Sanchez MD [Primary Care Provider] - Please follow up with your Primary Care Physician in: as scheduled Please Follow Up With: Stefan Brock When: as directed Please Follow Up With: bri sanchez Disposition: Home Minutes spent on discharge:: 32 Patient Condition:: Stable Medical Necessity - Tobacco Use Smoking Status: Never smoker Meaningful Use Info Meaningful Use Diagnoses (Choose all that apply): None applicable Code Visit Inpatient E&M: 19384 Disch Hosp
== END 2017-09-17 10:35 | disposition home or self-care (01) | DRG 309 ==
LOC: ED 21:12 → PCU 22:57
PROVIDERS: Admitting Provider Family Medicine; Emergency Provider Emergency Medicine; Family Provider Family Medicine; PCP Family Medicine; Visit Provider Internal Medicine
DX: R00.1 Bradycardia, unspecified (principal); N17.9 Acute kidney failure, unspecified; I48.2 Chronic atrial fibrillation; I10 Essential (primary) hypertension; Z79.01 Long term (current) use of anticoagulants
CPT/HCPCS: 36415; 71045; 80048; 80061; 83735; 83880; 83930; 83935; 84300; 84484; 85025; 85027; 93005; 93975; 99285; J7030; A4216; J2405

== ENCOUNTER → 2017-09-30 08:53 | Outpatient (CLI) | payer OTHER, SELFPAY ==
[2017-09-30 10:16] LABS: Anion Gap 8 (5-15); BUN 22 mg/dL (7-18); BUN/Creat Ratio 19.8 RATIO (10-20); Calcium,Total 8.6 mg/dL (8.5-10.1); Chloride 107 mmol/L (98-107); Creatinine, Serum 1.11 mg/dL (0.70-1.30); EST Glomerular Filtration Rate 71 mL/min (>60); Est Glom Filt Rate - Afr Amer 86 mL/min (>60); Glucose 122 mg/dL (74-106); Potassium 3.6 mmol/L (3.5-5.1); Sodium Level 141 mmol/L (136-145); T4 Free Direct 1.07 ng/dL (0.76-1.46); Thyroid Stim Hormone (TSH) 1.29 uIU/mL (0.358-3.74)
== END ==
PROVIDERS: Family Provider Family Medicine; PCP Family Medicine
DX: I10 Essential (primary) hypertension (principal); E78.5 Hyperlipidemia, unspecified; I48.91 Unspecified atrial fibrillation; R53.83 Other fatigue
CPT/HCPCS: 36415; 80048; 84439; 84443